=== PATIENT | male | born 1995 | race Caucasian/White ===

== ENCOUNTER 2022-12-17 21:07 | Emergency (ER) | payer BC ==
[~2022-12-17] VITALS: Ht 177.8 cm; Wt 85.2 kg
[2022-12-17 21:18] VITALS: BP 132/78
== END 2022-12-17 22:29 | disposition home or self-care (01) ==
LOC: ER 21:07
DX: M79.644 Pain in right finger(s) (principal); Z68.27 Body mass index [BMI] 27.0-27.9, adult; Z88.0 Allergy status to penicillin
CPT/HCPCS: 29125; 73140; 99283